=== PATIENT | male | born 1965 ===

== ENCOUNTER → 2018-08-06 20:46 | Outpatient (REF) | payer OTHER, SELFPAY ==
[2018-08-06 21:28] LABS: HEMOLYSIS < 15 (0-50)
[2018-08-06 21:33] LABS: Alanine Aminotransferase 45 IU/L (21-72); Albumin 4.5 g/dL (3.5-5.0); Albumin Globulin Ratio 1.6 (1.0-2.8); Alkaline Phosphatase 93 U/L (38-126); Aspartate Aminotransferase 30 IU/L (17-59); BUN Creatinine Ratio 13.6 (6-22); Bilirubin Total 0.6 mg/dL (0.2-1.3); Blood Urea Nitrogen 19 mg/dL (9-20); Calcium 9.7 mg/dL (8.4-10.2); Carbon Dioxide 29 mmol/L (22-32); Chloride 103 mmol/L (98-107); Globulin 2.9 g/dL (1.7-4.1); Glucose 89 mg/dL (70-100); Potassium 4.4 mmol/L (3.4-5.1); Sodium 142 mmol/L (137-145); Total Protein 7.4 g/dL (6.3-8.2)
[2018-08-06 22:07] LABS: Thyroid Stimulating Hormone 0.92 uIU/mL (0.47-4.68)
[2018-08-06 22:31] LABS: Vitamin D 25 Hydroxy (D3) 25.5 ng/mL (30.0-100.0)
[2018-08-06 23:25] LABS: High Sensitivity CRP - Cardiac 0.3 mg/L (1.0-3.0)
[2018-08-07 00:13] LABS: Free T3, Triiodothyronine Free 4.34 pg/mL (2.77-5.27); Free T4, Direct Thyroxine 0.95 ng/dL (0.78-2.19)
[2018-08-08 19:39] LABS: Estradiol 36 pg/mL (< 40)
[2018-08-09 08:42] LABS: Sex Hormone Binding Globulin 22 nmol/L (10-50)
[2018-08-11 21:58] LABS: Testosterone Free 63.2 pg/mL (35.0-155.0); Testosterone Total 334 ng/dL (250-1100)
[2018-08-12 15:38] LABS: Dehydroepiandrosterone Sulfate 278 mcg/dL (38-313)
== END ==
LOC: LAB 20:46
PROVIDERS: Visit Provider Naturopath
DX: F43.23 Adjustment disorder with mixed anxiety and depressed mood (principal); Z13.89 Encounter for screening for other disorder; R53.83 Other fatigue; G47.00 Insomnia, unspecified; K21.9 Gastro-esophageal reflux disease without esophagitis; R63.5 Abnormal weight gain; Z86.79 Personal history of other diseases of the circulatory system; E78.5 Hyperlipidemia, unspecified
CPT/HCPCS: 36415; 80053; 82306; 82627; 82670; 82728; 84270; 84402; 84403; 84439; 84443; 84481; 86140

== ENCOUNTER → 2018-11-20 22:07 | Outpatient (ROUT) | payer OTHER, SELFPAY ==
[2018-11-20 23:40] LABS: Add Manual Diff / Slide Review NO; Basophils Absolute Auto 100 /uL (0-100); Basophils Percent Auto 1.1 % (0-2); Eosinophils Absolute Auto 100 /uL (0-450); Eosinophils Percent Auto 0.7 % (2-4); Hematocrit 48.3 % (41-53); Lymphocytes Absolute Auto 2200 /uL (1100-4500); Lymphocytes Percent Auto 27.8 % (25-40); Mean Corpuscular HGB Conc 33.1 % (30-36); Mean Corpuscular Hemoglobin 29.9 PG (26-34); Mean Corpuscular Volume 90.3 fL (80-100); Monocytes Absolute Auto 800 /uL (0-900); Monocytes Percent Auto 10.6 % (3-14); Neutrophils Absolute Auto 4700 /uL (1500-7000); Neutrophils Percent Auto 59.8 % (50-75); Platelet Count 196 X10^3/uL (150-400); Red Blood Cell Count 5.35 X10^6/uL (4.5-5.9); Red Cell Distribution Width 13.6 % (11.6-14.8); White Blood Cell Count 7.8 X10^3/uL (4.5-11.0)
[2018-11-21 04:03] LABS: Vitamin D 25 Hydroxy (D3) 101 ng/mL (30.0-100.0)
[2018-11-21 05:13] LABS: Estradiol, Total 25.7 pg/mL
[2018-11-25 14:54] LABS: PSA Total 0.94 ng/mL (< 4.01)
== END ==
PROVIDERS: Visit Provider Naturopath
DX: E29.1 Testicular hypofunction (principal); E55.9 Vitamin D deficiency, unspecified
CPT/HCPCS: 36415; 82306; 82670; 84153; 84154; 84270; 84402; 84403; 85025